=== PATIENT | female | born 1980 | race Caucasian/White ===

== ENCOUNTER 2018-08-26 12:38 | Inpatient (IN) ==
[2018-08-26] MEDS ORDERED: BENTYL PO PRN (13:32)
[2018-08-26] MEDS ORDERED: ATARAX PO PRN (13:32)
[2018-08-26] MEDS ORDERED: NICODERM PATCH TD PRN (13:32)
[2018-08-26] MEDS ORDERED: SINEMET 25/100 PO PRN (13:32)
[2018-08-26] MEDS ORDERED: DESYREL PO PRN (13:32)
[2018-08-26] MEDS ORDERED: MAALOX PLUS LIQUID PO PRN (13:32)
[2018-08-26] MEDS ORDERED: MOTRIN PO PRN (13:32)
[2018-08-26] MEDS ORDERED: LIBRIUM PO PRN (13:32)
[2018-08-26] MEDS ORDERED: TYLENOL PO PRN (13:32)
[2018-08-26] MEDS ORDERED: SEROQUEL PO PRN (13:32)
[2018-08-26] MEDS ORDERED: ZOFRAN ODT PO PRN (13:32)
[2018-08-26] MEDS ORDERED: D5W 1,000 ML IV PRN (13:32)
[2018-08-26] MEDS ORDERED: ZOFRAN IV PRN (13:32)
[2018-08-26] MEDS ORDERED: PHENOBARBITAL IV PRN (13:32)
[2018-08-26] MEDS ORDERED: DULCOLAX PR PRN (13:32)
[2018-08-26] MEDS ORDERED: TUBERSOL ID ONE (13:32)
[2018-08-26] MEDS ORDERED: IMODIUM PO PRN (13:32)
[2018-08-26] MEDS: SUBOXONE 2 MG/0.5 MG FILM SL SCH (14:29)
[2018-08-26 14:47] LABS: HEMATOCRIT 38.4 % (37.0-47.0); HEMOGLOBIN 12.5 g/dL (12.0-16.0); MCH 29.7 PG (27-31); MCHC 32.6 g/dL (33-37); MCV 91.2 FL (81-99); RBC 4.21 XMIL (4.2-5.4); RDW 16.1 % (11.5-14.5); WBC 6.97 X1000 (4.8-10.8)
[2018-08-26 15:02] LABS: AMYLASE 51 U/L (20-200); LIPASE 17 U/L (13-60)
[2018-08-26 15:02] LABS: UR CANNABINOIDS QUAL PRESUMPTIVE POSITIVE (NONE DETECT); UR OXYCODONE QUAL PRESUMPTIVE POSITIVE (NONE DETECT)
[2018-08-26 15:03] LABS: UR AMPHETAMINES QUAL NONE DETECTED (NONE DETECT); UR BARBITUATES QUAL NONE DETECTED (NONE DETECT); UR BENZODIAZEPIN QUAL PRESUMPTIVE POSITIVE (NONE DETECT); UR COCAINE QUAL NONE DETECTED (NONE DETECT); UR METHADONE QUAL NONE DETECTED (NONE DETECT); UR METHAMPHETAMINE QUAL NONE DETECTED (NONE DETECT); UR OPIATES QUAL NONE DETECTED (NONE DETECT); UR PCP QUAL NONE DETECTED (NONE DETECT); UR PROPOXYPHENE QUAL NONE DETECTED (NONE DETECT); UR TCA QUAL NONE DETECTED (NONE DETECT)
[2018-08-26 15:05] LABS: AGAP 9; ALBUMIN 3.7 g/dL (3.5-5.0); ALKALINE PHOSPHATASE 86 U/L (32-104); BUN 11 mg/dL (8-22); CALCIUM 8.6 mg/dL (8.8-10.2); CHLORIDE 104 mmol/L (98-107); COSMO 275; CREATININE 0.6 mg/dL (0.5-0.9); ESTIMATED GFR > 60; GLUCOSE 90 mg/dL (70-104); GOT 21 U/L (10-30); GPT 23 U/L (10-36); POTASSIUM 4.3 mmol/L (3.5-5.1); SODIUM 138 mmol/L (136-145); TCO2 24 mmol/L (25-35); TOTAL PROTEIN 6.6 g/dL (6.3-8.3)
[2018-08-26 15:11] LABS: INR 0.99; PROTIME 13.6 Seconds (11.0-16.0)
[2018-08-26] MEDS: ROBAXIN PO PRN (16:03)
[2018-08-26 16:22] LABS: URINE SOURCE VOIDED
[2018-08-26 16:29] LABS: BILIRUBIN URINE NEGATIVE (NEGATIVE); BLOOD URINE 3+ (NEGATIVE); CLARITY CLEAR (CLEAR); COLOR YELLOW; GLUCOSE URINE NEGATIVE (NEGATIVE); KETONE URINE NEGATIVE (NEGATIVE); LEUKOCYTES URINE NEGATIVE (NEGATIVE); NITRITE URINE NEGATIVE (NEGATIVE); PROTEIN URINE NEGATIVE (NEGATIVE); SP GRAVITY URINE 1.005; UROBILINOGEN URINE NORMAL
[2018-08-26 16:35] LABS: URINE BACTERIA 1+ /HFP; URINE RBC <10 /HPF (<10); URINE WBC <10 /HPF (<10); URINE YEAST NONE SEEN /HPF
[2018-08-26 16:36] LABS: URINE CAST NONE SEEN /LPF; URINE CRYSTAL NONE SEEN /HPF; URINE EPITHELIAL CELLS >10 /HPF (<10)
[2018-08-27] MEDS: SUBOXONE 2 MG/0.5 MG FILM SL SCH (02:30)
[2018-08-27] MEDS ORDERED: PROTONIX PO SCH (07:00)
[2018-08-27] MEDS ORDERED: FOLIC ACID PO SCH (09:00)
[2018-08-27] MEDS ORDERED: VITAMIN B-1 PO SCH (09:00)
[2018-08-27] MEDS ORDERED: THERA M PLUS PO SCH (09:00)
[2018-08-27] MEDS ORDERED: LASIX PO PRN (09:27)
[2018-08-27] MEDS ORDERED: SUBOXONE 2 MG/0.5 MG FILM SL ONE (09:27)
[2018-08-27 09:29] VITALS: BP 99/42
[2018-08-27] MEDS: ROBAXIN PO PRN (09:50)
[2018-08-27] MEDS ORDERED: NEURONTIN PO SCH (13:00)
--- NOTE | 2018-08-27 16:16 | PROGRESS NOTE ---
DATE: 08/27/2018 SUBJECTIVE: Patient notes that she is feeling a little bit better. Her withdrawal symptoms of nausea, vomiting, abdominal pain, and paresthesias are improving. PHYSICAL: Vital signs: Reviewed. General: She is awake and alert. She is in no current distress. HEENT: Normocephalic. Neck: Supple. Cardiovascular: Regular rate. No murmurs. Chest: Clear, nonlabored. Abdomen: Soft. Extremities: Moves all extremities. ASSESSMENT: 1. Nausea and vomiting. 2. Abdominal pain. 3. Myalgias. 4. Paresthesias. 5. Paroxysmal sweating. 6. Opiate abuse withdrawal and stabilization. PLAN: We will increase patient back to the 8/2 mg Suboxone that she had been on previously. If her symptoms continue to improve, she may be able to be discharged home later this afternoon. cc: Robson Stevens MD
[2018-08-27] MEDS ORDERED: SUBOXONE 8 MG/2 MG FILM SL SCH (21:00)
[2018-08-28] MEDS ORDERED: PRILOSEC PO SCH (07:00)
--- NOTE | 2018-08-28 21:30 | HISTORY AND PHYSICAL ---
CHIEF COMPLAINT: Nausea, vomiting. HISTORY OF PRESENT ILLNESS: The patient is a 38-year-old female who presented to [facility] secondary to nausea, vomiting, abdominal pain, myalgias, paresthesias. Presented to the office noting that she had been abusing opiates and has been wanting to get clean. SOCIAL HISTORY: Patient is single. She is on disability. Lives at home in [place]. PAST MEDICAL HISTORY: Hypothyroidism. She has had 2 open-heart surgeries secondary to IV drug abuse. History of blood clots, seizures, fibromyalgia, states that she started taking pills again and does not want it to get back out of hand. She has chronic anxiety, depression. She had a seizure in 2001, secondary to tramadol overdose. She has chronic fibromyalgia and congestive heart failure. MEDICATIONS: Lasix 20, Neurontin 800 three times a day, Synthroid 125, Xanax 1 b.i.d., Ambien 10, Zanaflex 4, Lexapro. ALLERGIES: No known drug allergies. REVIEW OF SYSTEMS: CINA score is elevated at 21 secondary to tremors, myalgias, fidgety, anxious, watery eyes, runny nose, unable to sit still, occasional diarrhea, frequent nausea, vomiting, frequent episodes of sweating, hot flashes. Denies any headaches, blurred vision, change in her vision. Denies any focalized numbness, tingling, weakness in her extremities. Denies any dysuria, frequency, or urgency. Denies any cough, congestion, or other upper respiratory-type symptoms. SUBSTANCE ABUSE: The patient was in treatment in 2007 in [place], 2015 in [facility]. Relapsed almost immediately each time. Started alcohol at 15, stopped a few years ago. Started marijuana at 15, has not used in the past couple of days. Started Xanax at 23, has continued to use recreationally. Started meth at age 29, has not used in years. Tried cocaine at 29, has not used in years. Has experimentally used hallucinogens at 33, one time. Started pain medications at 19, currently is using OxyContin IV as much as she can afford. Otherwise, takes at least 2 to 4 Percocet pills a day. Started smoking at 15, currently smokes a pack a day. FAMILY HISTORY: Noncontributory. PHYSICAL EXAMINATION: VITAL SIGNS: Reviewed and stable. GENERAL: Patient is awake, alert, oriented. Currently in no respiratory distress. HEENT: Normocephalic, atraumatic. PERRL. NECK: Supple. No JVD. CARDIOVASCULAR: Regular rate. No murmurs. CHEST: Clear. No wheezing. ABDOMEN: Soft, nondistended. EXTREMITIES: Moves all extremities. No edema. NEUROLOGIC: No focal changes. PLAN: We will admit patient to hospital. Intravenous fluids, place her on Suboxone, begin counseling, and further orders as needed. cc: Robson Stevens MD
--- NOTE | 2018-08-29 08:12 | DISCHARGE SUMMARY ---
ADMISSION DATE: 08/26/2018 DISCHARGE DATE: 08/27/2018 DISCHARGE DIAGNOSES: 1. Nausea and vomiting. 2. Abdominal pain. 3. Myalgias. 4. Paresthesias. 5. Paroxysmal sweating. 6. Opiate abuse, withdrawal, and stabilization. 7. Known coronary artery disease. 8. Congestive heart failure. 9. Hypothyroidism. 10. History of seizures due to withdrawal and due to abuse. CONSULTATIONS: None. PROCEDURES: None. BRIEF HOSPITAL COURSE: The patient is a 38-year-old female who presented to [facility] program secondary to withdrawal symptoms. Was treated in the usual fashion. Restarted on her Suboxone, that she had been out of. Her symptoms improved. On discharge, she is awake and alert. She is in no distress. Notes that her withdrawal symptoms are much improved. She is overall feeling better and back to her baseline. DISPOSITION: The patient will be discharged home. Discussed with her that she needs to avoid situations that encourage her to use or abuse, as well as avoid persons, places, and situations in which she is likely to have her Suboxone stolen. She will need outpatient life counseling as well as drug counseling. TIME SPENT: Greater than 30 minutes were spent in total care. cc: Robson Stevens MD
== END 2018-08-27 13:50 | disposition home or self-care (01) | DRG 897 ==
LOC: P.DIRADM 12:38 → P.MEDSURG 13:02
PROVIDERS: ADMIT Family Medicine; ATTEND Family Medicine
CPT/HCPCS: 80053; 80104; 80301; 80305; 80307; 80320; 81001; 82055; 82150; 83690; 84703; 85027; 85610; 86580; A9270; G0431; G0434; G0477; G0480; G6040